=== PATIENT | female | born 1950 | race Caucasian/White ===

== ENCOUNTER → 2020-12-22 | Outpatient (CLI) | payer MEDICARE, OTHER ==
--- NOTE | 2020-12-22 14:20 | RAD ---
Chest radiograph 12/22/2020 10:42 AM INDICATION: COPD COMPARISON: None available TECHNIQUE: Frontal and lateral views of the chest are provided. FINDINGS: The cardiomediastinal silhouette is within normal limits. There are no pleural effusions. There is no pulmonary vascular congestion. There is no pneumothorax. The lungs are clear. There is subsegmental atelectasis at the left lung base. No significant osseous abnormality is identified. Large hiatal hernia. IMPRESSION: No acute cardiopulmonary process. Large hiatal hernia with subsegmental atelectasis at the left lung base. Electronically signed by: Anju Fernández MD (12/22/2020 2:18 PM) [id number]
== END ==
LOC: DXRAD 10:30
PROVIDERS: ATTEND Family Medicine
DX: J44.9 Chronic obstructive pulmonary disease, unspecified (principal); J98.11 Atelectasis; K44.9 Diaphragmatic hernia without obstruction or gangrene
CPT/HCPCS: 71046